=== PATIENT | female | born 1945 | race Caucasian/White ===

== ENCOUNTER 2020-10-05 10:59 | Inpatient (IN) | payer MEDICARE ==
[2020-10-05] MEDS ORDERED: Iopamidol-370 76% 500 ML 1 ML ONE (11:11)
[2020-10-05 11:32] LABS: #Eosinphils 0.4 thou/uL (0.0-0.7); #Lymphocytes 1.1 thou/uL (1.20-3.40); #Monocytes 0.7 thou/uL (0.11-0.59); #Neutrophils 4.4 thou/uL (1.40-6.50); %Basophils 0.1 % (0.0-1.0); %Eosinophils 6.1 % (0.0-10.0); %Lymphocytes 16.8 % (21.0-51.0); Hemoglobin 8.7 g/dL (12.0-16.0); Mean Corpuscular HGB CONC 32.2 g/dL (32.0-36.0); Mean Corpuscular Volume 99.1 fL (78.0-98.0); Mean Platelet Volume 7.2 fL (7.4-10.4); Platelet Count 154 thou/uL (130-400); Red Blood Cell (RBC) Count 2.71 mill/uL (4.20-5.40); White Blood Cell (WBC) Count 6.6 thou/uL (4.8-10.8)
[2020-10-05] MEDS ORDERED: Furosemide 40 MG/4 ML VIAL ONE (11:41)
[2020-10-05 12:03] LABS: ALT (SGPT) 14 U/L (8-55); AST (SGOT) 24 U/L (5-34); Albumin 2.4 g/dL (3.4-4.8); Alkaline Phosphatase 160 U/L (40-110); Anion Gap 11 mmol/L (10-20); BUN (Urea Nitrogen) 20 mg/dL (9.8-20.1); Bilirubin, Total 0.4 mg/dL (0.2-1.2); Calc. Creatinine Clearance 0 mL/min (70-130); Calcium 7.9 mg/dL (7.8-10.44); Carbon Dioxide 23 mmol/L (23-31); Chloride 106 mmol/L (98-107); Globulin 3.4 g/dL (2.4-3.5); Glucose 220 mg/dL (83-110); Potassium 3.9 mmol/L (3.5-5.1); Protein, Total 5.8 g/dL (5.8-8.1); Sodium 136 mmol/L (136-145)
[2020-10-05 13:02] LABS: SARS-CoV-2 NAA Rapid Test Not Detected (NotDetected)
[2020-10-05] MEDS ORDERED: Pantoprazole 40 MG VIAL ONE (13:16)
[2020-10-05 15:15] LABS: Troponin I Less than 0.010 ng/mL (< 0.028)
[2020-10-05] MEDS ORDERED: Ondansetron ODT 4 MG TAB SL PRN (16:00)
[2020-10-05] MEDS ORDERED: Ondansetron PF 4 MG/2 ML Vial IVP PRN (16:00)
[2020-10-05 17:16] LABS: INR-International Normal Ratio 1.1; PTT 30.8 sec (22.9-36.1); Prothrombin Time 14.7 sec (12.0-14.7)
[2020-10-05 17:49] LABS: HBCM Index 0.08 S/CO (0-0.79); HBSAg Index 0.29 S/CO (0-0.99); Hep A IgM AB Non-Reactive (NonReactive); Hep A IgM S/CO 0.25 S/CO (0-0.79); Hep B Surf Ag Non-Reactive S/CO (NonReactive); Hep C IgG Ab Non-Reactive (NonReactive); Hep C Index 0.22 S/CO (0-0.79); Hepatitis B Core IgM Abs Non-Reactive (NonReactive)
[2020-10-05 17:50] LABS: Troponin I Less than 0.010 ng/mL (< 0.028)
[2020-10-05] MEDS: Clindamycin/D5W 900 MG in Premix Bag 1 BAG IVPB SCH (18:13)
[2020-10-06] MEDS: Clindamycin/D5W 900 MG in Premix Bag 1 BAG IVPB SCH ×3 (03:00→17:09)
[2020-10-06 05:55] LABS: #Eosinphils 0.5 thou/uL (0.0-0.7); #Lymphocytes 1.3 thou/uL (1.20-3.40); #Monocytes 0.5 thou/uL (0.11-0.59); #Neutrophils 3.4 thou/uL (1.40-6.50); %Basophils 0.4 % (0.0-1.0); %Eosinophils 8.4 % (0.0-10.0); %Lymphocytes 23.4 % (21.0-51.0); %Monocytes 8.4 % (0.0-10.0); %Neutrophils 59.5 % (42.0-75.0); Hemoglobin 8.4 g/dL (12.0-16.0); Mean Corpuscular HGB CONC 31.8 g/dL (32.0-36.0); Mean Corpuscular Hemoglobin 31.6 pg (27.0-31.0); Mean Corpuscular Volume 99.4 fL (78.0-98.0); Mean Platelet Volume 6.8 fL (7.4-10.4); Platelet Count 137 thou/uL (130-400); Red Blood Cell (RBC) Count 2.64 mill/uL (4.20-5.40); White Blood Cell (WBC) Count 5.7 thou/uL (4.8-10.8)
[2020-10-06] MEDS: Bumetanide 1 MG/4 ML VIAL IVP SCH ×2 (06:03→14:54)
[2020-10-06 06:18] LABS: Anion Gap 9 mmol/L (10-20); BUN (Urea Nitrogen) 19 mg/dL (9.8-20.1); Calc. Creatinine Clearance 56 mL/min (70-130); Calcium 8.2 mg/dL (7.8-10.44); Carbon Dioxide 24 mmol/L (23-31); Chloride 105 mmol/L (98-107); Glucose 162 mg/dL (83-110); Iron 19 ug/dL (50-170); Iron Binding Capacity, Total 228 mcg/dL (265-497); Potassium 3.3 mmol/L (3.5-5.1); Sodium 135 mmol/L (136-145)
[2020-10-06] MEDS ORDERED: Lidocaine 1% PF 5 ML VIAL ONE (08:37)
[2020-10-06] MEDS ORDERED: Sodium Bicarbonate 2.5 MEQ/5 ML VIAL ONE (08:37)
[2020-10-06] MEDS: Saccharomyces boulardii 250 MG CAP PO SCH (10:10)
[2020-10-06] MEDS: Lantus 1000 UNITS/10 ML VIAL SC SCH (10:11)
[2020-10-06] MEDS: Metoprolol Tartrate 25 MG TAB PO SCH (10:11)
[2020-10-06 10:47] LABS: RBC Count-Automated (BF) 52 /cu.mm; WBC/Nucleated-Auto (BF) 31 uL
[2020-10-06 11:12] LABS: Body Fluid Source Paracentesis Fluid; Tube # EDTA
[2020-10-06 11:13] LABS: BF Color Yellow; Clarity Hazy (Clear)
[2020-10-06 11:15] LABS: BF Segmented Neutrophils 9 %; Cell Count Non Hematic 80 %; Lymphocytes 11 %
[2020-10-06 13:03] VITALS: BMI 40.6
[2020-10-06] MEDS ORDERED: Zolpidem Tartrate 5 MG TAB PO SCH ×2 (21:00→21:30)
[2020-10-07] MEDS: Clindamycin/D5W 900 MG in Premix Bag 1 BAG IVPB SCH ×3 (01:54→17:16)
[2020-10-07 06:16] LABS: #Eosinphils 0.4 thou/uL (0.0-0.7); #Lymphocytes 1.4 thou/uL (1.20-3.40); #Monocytes 0.6 thou/uL (0.11-0.59); #Neutrophils 3.2 thou/uL (1.40-6.50); %Basophils 0.5 % (0.0-1.0); %Eosinophils 7.1 % (0.0-10.0); %Lymphocytes 25.2 % (21.0-51.0); %Monocytes 9.9 % (0.0-10.0); %Neutrophils 57.3 % (42.0-75.0); Hemoglobin 8.4 g/dL (12.0-16.0); Mean Corpuscular HGB CONC 32.4 g/dL (32.0-36.0); Mean Corpuscular Hemoglobin 31.9 pg (27.0-31.0); Mean Corpuscular Volume 98.7 fL (78.0-98.0); Mean Platelet Volume 7.3 fL (7.4-10.4); Platelet Count 124 thou/uL (130-400); RBC Distribution Width 13.9 % (11.5-14.5); Red Blood Cell (RBC) Count 2.62 mill/uL (4.20-5.40); White Blood Cell (WBC) Count 5.5 thou/uL (4.8-10.8)
[2020-10-07 06:41] LABS: Anion Gap 11 mmol/L (10-20); BUN (Urea Nitrogen) 19 mg/dL (9.8-20.1); Calc. Creatinine Clearance 60 mL/min (70-130); Calcium 7.6 mg/dL (7.8-10.44); Carbon Dioxide 22 mmol/L (23-31); Chloride 105 mmol/L (98-107); Glucose 112 mg/dL (83-110); Potassium 3.7 mmol/L (3.5-5.1); Sodium 134 mmol/L (136-145)
[2020-10-07] MEDS ORDERED: Spironolactone 25 MG TAB PO SCH (08:00)
[2020-10-07] MEDS: Metoprolol Tartrate 25 MG TAB PO SCH (08:49)
[2020-10-07] MEDS: Furosemide 20 MG/2 ML VIAL SLOW IVP SCH (08:50)
[2020-10-07] MEDS: Saccharomyces boulardii 250 MG CAP PO SCH (08:50)
[2020-10-07] MEDS: Lantus 1000 UNITS/10 ML VIAL SC SCH (08:50)
[2020-10-07] MEDS ORDERED: Dextrose 5% in Water 1,000 ML IV PRN (16:15)
[2020-10-07] MEDS ORDERED: Dextrose 50% Abboject 50 ML SYRINGE IVP PRN (16:15)
[2020-10-07] MEDS: Insulin Regular 300 UNITS/3 ML VIAL SC PRN (17:16)
[2020-10-08] MEDS ORDERED: Zolpidem Tartrate 5 MG TAB PO SCH (00:15)
[2020-10-08] MEDS: Clindamycin/D5W 900 MG in Premix Bag 1 BAG IVPB SCH ×3 (01:41→17:50)
[2020-10-08 07:00] LABS: #Eosinphils 0.4 thou/uL (0.0-0.7); #Lymphocytes 1.4 thou/uL (1.20-3.40); #Monocytes 0.6 thou/uL (0.11-0.59); #Neutrophils 3.7 thou/uL (1.40-6.50); %Basophils 0.4 % (0.0-1.0); %Eosinophils 7.1 % (0.0-10.0); %Lymphocytes 22.4 % (21.0-51.0); %Monocytes 9.6 % (0.0-10.0); %Neutrophils 60.5 % (42.0-75.0); Hemoglobin 8.6 g/dL (12.0-16.0); Mean Corpuscular HGB CONC 33.3 g/dL (32.0-36.0); Mean Corpuscular Hemoglobin 32.9 pg (27.0-31.0); Mean Corpuscular Volume 98.8 fL (78.0-98.0); Mean Platelet Volume 7.7 fL (7.4-10.4); Platelet Count 133 thou/uL (130-400); RBC Distribution Width 13.8 % (11.5-14.5); Red Blood Cell (RBC) Count 2.63 mill/uL (4.20-5.40); White Blood Cell (WBC) Count 6.1 thou/uL (4.8-10.8)
[2020-10-08 07:17] LABS: Anion Gap 11 mmol/L (10-20); BUN (Urea Nitrogen) 19 mg/dL (9.8-20.1); Calc. Creatinine Clearance 55 mL/min (70-130); Calcium 7.6 mg/dL (7.8-10.44); Carbon Dioxide 27 mmol/L (23-31); Chloride 104 mmol/L (98-107); Glucose 120 mg/dL (83-110); Potassium 3.9 mmol/L (3.5-5.1); Sodium 138 mmol/L (136-145)
[2020-10-08] MEDS: Saccharomyces boulardii 250 MG CAP PO SCH (08:28)
[2020-10-08] MEDS: Spironolactone 100 MG TAB PO SCH (08:28)
[2020-10-08] MEDS: Metoprolol Tartrate 25 MG TAB PO SCH (08:29)
[2020-10-08] MEDS: Furosemide 20 MG/2 ML VIAL SLOW IVP SCH (08:29)
[2020-10-08] MEDS: Lantus 1000 UNITS/10 ML VIAL SC SCH (08:29)
[2020-10-08] MEDS: Insulin Regular 300 UNITS/3 ML VIAL SC PRN (18:01)
[2020-10-09] MEDS: Clindamycin/D5W 900 MG in Premix Bag 1 BAG IVPB SCH ×2 (01:13→08:57)
[2020-10-09] MEDS ORDERED: HYDROcodone/Acetaminophen 5/325 mg Tablet PO SCH (03:15)
[2020-10-09] MEDS: Saccharomyces boulardii 250 MG CAP PO SCH (07:49)
[2020-10-09] MEDS: Furosemide 20 MG/2 ML VIAL SLOW IVP SCH (07:49)
[2020-10-09] MEDS: Metoprolol Tartrate 25 MG TAB PO SCH (07:50)
[2020-10-09] MEDS: Spironolactone 100 MG TAB PO SCH (07:50)
[2020-10-09] MEDS: Lantus 1000 UNITS/10 ML VIAL SC SCH (07:50)
[2020-10-09] MEDS: Insulin Regular 300 UNITS/3 ML VIAL SC PRN (11:40)
[2020-10-09] MEDS: Clindamycin 150 MG CAP PO SCH ×2 (15:26→23:12)
[2020-10-10] MEDS: Insulin Regular 300 UNITS/3 ML VIAL SC PRN ×2 (05:26→11:57)
[2020-10-10] MEDS: Clindamycin 150 MG CAP PO SCH ×2 (05:28→15:08)
[2020-10-10 07:56] VITALS: BP 105/66; TEMP 97.8
[2020-10-10] MEDS: Spironolactone 100 MG TAB PO SCH (08:29)
[2020-10-10] MEDS: Metoprolol Tartrate 25 MG TAB PO SCH (08:29)
[2020-10-10] MEDS: Saccharomyces boulardii 250 MG CAP PO SCH (08:29)
[2020-10-10] MEDS: Lantus 1000 UNITS/10 ML VIAL SC SCH (08:30)
[2020-10-10] MEDS ORDERED: Furosemide 40 MG TAB PO SCH (09:00)
[2020-10-10 11:38] LABS: ANA Symphony (Qualitative) Negative (Negative); ANA Symphony (Quantitative) 0.3 Ratio (< 0.7 Negative)
[2020-10-10 12:36] LABS: EliA Vaculitis New Method **** NEW METHOD ****; Mitochondrial Ab 2.3 U/mL (<4 Negative)
== END 2020-10-10 16:15 | DRG 433 ==
LOC: ERS 10:59 → T4-B 14:30
PROVIDERS: ADMIT Family Medicine; ATTEND Internal Medicine
PROC: 0W9G3ZZ Drainage of Peritoneal Cavity, Percutaneous Approach (ICD-10-PCS; principal; 2020-10-06)
DX: K74.60 Unspecified cirrhosis of liver (principal); I13.0 Hypertensive heart and chronic kidney disease with heart failure and stage 1 through stage 4 chronic kidney disease, or unspecified chronic kidney disease; R18.8 Other ascites; Z20.822 Contact with and (suspected) exposure to COVID-19; K76.6 Portal hypertension; L03.119 Cellulitis of unspecified part of limb; R65.10 Systemic inflammatory response syndrome (SIRS) of non-infectious origin without acute organ dysfunction; I50.9 Heart failure, unspecified; E11.22 Type 2 diabetes mellitus with diabetic chronic kidney disease; E11.65 Type 2 diabetes mellitus with hyperglycemia; I25.10 Atherosclerotic heart disease of native coronary artery without angina pectoris; K59.09 Other constipation; F41.9 Anxiety disorder, unspecified; N18.9 Chronic kidney disease, unspecified; R41.0 Disorientation, unspecified; Z95.1 Presence of aortocoronary bypass graft; Z88.0 Allergy status to penicillin; Z88.2 Allergy status to sulfonamides; Z79.82 Long term (current) use of aspirin; Z79.4 Long term (current) use of insulin; Z79.899 Other long term (current) drug therapy; I25.2 Old myocardial infarction; Z95.5 Presence of coronary angioplasty implant and graft; D63.1 Anemia in chronic kidney disease
CPT/HCPCS: 0240U; 36415; 36416; 49083; 71045; 71275; 80048; 80053; 80074; 82042; 82103; 82274; 82390; 82728; 83516; 83540; 83550; 83615; 83880; 84157; 84484; 85025; 85046; 85060; 85610; 85730; 86038; 86225; 87070; 87205; 89051; 93005; 93306; 94640; 96374; 96375; C9113; J1815; J1940; J3490; J7620; Q9967

== ENCOUNTER 2020-10-12 11:34 | Inpatient (IN) | payer MEDICARE ==
[2020-10-12 12:32] LABS: Hemoglobin 8.5 g/dL (12.0-16.0); Mean Corpuscular HGB CONC 33.6 g/dL (32.0-36.0); Mean Corpuscular Hemoglobin 32.2 pg (27.0-31.0); Mean Corpuscular Volume 95.9 fL (78.0-98.0); RBC Distribution Width 13.7 % (11.5-14.5); Red Blood Cell (RBC) Count 2.64 mill/uL (4.20-5.40); White Blood Cell (WBC) Count 5.9 thou/uL (4.8-10.8)
[2020-10-12 12:36] LABS: INR-International Normal Ratio 1.1; Prothrombin Time 14.2 sec (12.0-14.7)
[2020-10-12 12:37] LABS: PTT 24.3 sec (22.9-36.1)
[2020-10-12 12:41] LABS: ALT (SGPT) 12 U/L (8-55); AST (SGOT) 18 U/L (5-34); Albumin 2.1 g/dL (3.4-4.8); Alkaline Phosphatase 137 U/L (40-110); Anion Gap 10 mmol/L (10-20); BUN (Urea Nitrogen) 22 mg/dL (9.8-20.1); Bilirubin, Total 0.3 mg/dL (0.2-1.2); Calc. Creatinine Clearance 0 mL/min (70-130); Calcium 8.3 mg/dL (7.8-10.44); Carbon Dioxide 26 mmol/L (23-31); Chloride 106 mmol/L (98-107); Globulin 3.8 g/dL (2.4-3.5); Glucose 218 mg/dL (83-110); Potassium 3.8 mmol/L (3.5-5.1); Protein, Total 5.9 g/dL (5.8-8.1); Sodium 138 mmol/L (136-145)
[2020-10-12 12:52] LABS: Band 14 % (5-11); Lymphocytes 30 % (21-51); MDiff Complete? YES; Mean Platelet Volume 8.9 fL (7.4-10.4); Monocytes 4 % (0-10); Neutrophil 52 % (42-75); Platelet Count 31 thou/uL (130-400)
[2020-10-12] MEDS ORDERED: Cefepime 2 GM VIAL ONE (14:08)
[2020-10-12] MEDS ORDERED: VANCOMYCIN 2 GRAM/400 ML BAG 2 GM in Premix Bag 1 BAG IVPB SCH (14:45)
[2020-10-12 17:15] LABS: Troponin I Less than 0.010 ng/mL (< 0.028)
[2020-10-12 18:50] LABS: Troponin I Less than 0.010 ng/mL (< 0.028)
[2020-10-12] MEDS ORDERED: Ondansetron PF 4 MG/2 ML Vial IVP PRN (19:00)
[2020-10-12] MEDS ORDERED: Ondansetron ODT 4 MG TAB SL PRN (19:00)
[2020-10-12] MEDS ORDERED: Dextrose 5% in Water 1,000 ML IV PRN (20:37)
[2020-10-12] MEDS ORDERED: Acetaminophen 325 MG TAB PO PRN (20:37)
[2020-10-12] MEDS ORDERED: Dextrose 50% Abboject 50 ML SYRINGE SLOW IVP PRN (20:37)
[2020-10-12] MEDS: Sodium Chloride 0.9% 1,000 ML IV SCH (21:20)
[2020-10-12] MEDS ORDERED: diphenhydrAMINE 50 MG/ML VIAL IVP PRN (22:48)
[2020-10-12 23:15] VITALS: BMI 41.7
[2020-10-13 03:12] LABS: SARS-CoV-2 NAA Rapid Test Not Detected (NotDetected)
[2020-10-13 04:58] LABS: #Eosinphils 0.3 thou/uL (0.0-0.7); #Lymphocytes 1.5 thou/uL (1.20-3.40); #Monocytes 0.6 thou/uL (0.11-0.59); %Basophils 0.6 % (0.0-1.0); %Eosinophils 4.2 % (0.0-10.0); %Lymphocytes 20.1 % (21.0-51.0); %Monocytes 8.3 % (0.0-10.0); %Neutrophils 66.8 % (42.0-75.0); Hemoglobin 9.6 g/dL (12.0-16.0); Mean Corpuscular HGB CONC 33.1 g/dL (32.0-36.0); Mean Corpuscular Hemoglobin 31.9 pg (27.0-31.0); Mean Corpuscular Volume 96.3 fL (78.0-98.0); Mean Platelet Volume 7.9 fL (7.4-10.4); Platelet Count 124 thou/uL (130-400); RBC Distribution Width 13.8 % (11.5-14.5); Red Blood Cell (RBC) Count 2.99 mill/uL (4.20-5.40); White Blood Cell (WBC) Count 7.5 thou/uL (4.8-10.8)
[2020-10-13 05:10] LABS: Anion Gap 11 mmol/L (10-20); BUN (Urea Nitrogen) 23 mg/dL (9.8-20.1); Calc. Creatinine Clearance 57 mL/min (70-130); Calcium 8.2 mg/dL (7.8-10.44); Carbon Dioxide 25 mmol/L (23-31); Chloride 106 mmol/L (98-107); Glucose 140 mg/dL (83-110); Potassium 3.6 mmol/L (3.5-5.1); Sodium 138 mmol/L (136-145)
[2020-10-13] MEDS: Atorvastatin Calcium 40 MG TAB PO SCH (08:44)
[2020-10-13] MEDS: Furosemide 40 MG TAB PO SCH (08:44)
[2020-10-13] MEDS: Aspirin 81 mg Enteric Coated Tablet PO SCH (08:44)
[2020-10-13] MEDS: Spironolactone 100 MG TAB PO SCH (08:44)
[2020-10-13] MEDS: Sodium Chloride 0.9% 1,000 ML IV SCH (12:43)
[2020-10-13] MEDS ORDERED: Cefepime 1 GM in Sodium Chloride 0.9% 100 ML IVPB SCH (14:00)
[2020-10-13] MEDS ORDERED: Furosemide 20 MG/2 ML VIAL SLOW IVP SCH (14:30)
[2020-10-13] MEDS ORDERED: Azithromycin 500 MG in Sodium Chloride 0.9% 250 ML 250 ML IVPB SCH (15:00)
[2020-10-13] MEDS: HumaLOG 300 UNITS/3 ML VIAL SC PRN (17:24)
[2020-10-13] MEDS: cefTRIAXone\\ROCEPHIN 1 GM in Sodium Chloride 0.9% 100 ML IVPB SCH (17:24)
[2020-10-13] MEDS ORDERED: Vancomycin 1.5 GRAM/300 ML BAG 1.5 GM in Premix Bag 1 BAG IVPB SCH (18:00)
[2020-10-13 18:41] LABS: Bilirubin Negative (Negative); Blood, Urine Trace (Negative); Clarity Turbid (Clear); Glucose, Urine (Dipstick) Normal (Negative); Ketone, Urine Negative (Negative); Leukocyte 500 Leu/uL (Negative); Nitrite Negative (Negative); Protein, Urine (Dipstick) Negative (Neg-Trace); Specific Gravity, Urine 1.009 (1.002-1.036); Squamous Epithelial 0-3 HPF (0-3); Urobilinogen Normal mg/dL (Less than 2); WBC/HPF Greater than 50 HPF (0-3)
[2020-10-13 18:49] LABS: Bacteria/HPF 1+ HPF (None Seen)
[2020-10-13 18:50] LABS: Urine Culture Reflex Yes Yes
[2020-10-14 04:51] LABS: #Eosinphils 0.3 thou/uL (0.0-0.7); #Lymphocytes 1.4 thou/uL (1.20-3.40); #Monocytes 0.6 thou/uL (0.11-0.59); #Neutrophils 3.4 thou/uL (1.40-6.50); %Basophils 0.2 % (0.0-1.0); %Eosinophils 4.7 % (0.0-10.0); %Lymphocytes 24.8 % (21.0-51.0); %Monocytes 10.7 % (0.0-10.0); %Neutrophils 59.7 % (42.0-75.0); Hemoglobin 7.9 g/dL (12.0-16.0); Mean Corpuscular HGB CONC 32.3 g/dL (32.0-36.0); Mean Corpuscular Hemoglobin 31.2 pg (27.0-31.0); Mean Corpuscular Volume 96.5 fL (78.0-98.0); Mean Platelet Volume 7.7 fL (7.4-10.4); Platelet Count 113 thou/uL (130-400); RBC Distribution Width 13.7 % (11.5-14.5); Red Blood Cell (RBC) Count 2.55 mill/uL (4.20-5.40); White Blood Cell (WBC) Count 5.7 thou/uL (4.8-10.8)
[2020-10-14 05:52] LABS: ALT (SGPT) 12 U/L (8-55); AST (SGOT) 14 U/L (5-34); Albumin 2.1 g/dL (3.4-4.8); Alkaline Phosphatase 126 U/L (40-110); Anion Gap 12 mmol/L (10-20); BUN (Urea Nitrogen) 22 mg/dL (9.8-20.1); Bilirubin, Total 0.4 mg/dL (0.2-1.2); Calc. Creatinine Clearance 60 mL/min (70-130); Calcium 7.6 mg/dL (7.8-10.44); Carbon Dioxide 21 mmol/L (23-31); Chloride 107 mmol/L (98-107); Globulin 3.5 g/dL (2.4-3.5); Glucose 175 mg/dL (83-110); Magnesium 1.7 mg/dL (1.6-2.6); Phosphorus 3.2 mg/dL (2.3-4.7); Potassium 3.8 mmol/L (3.5-5.1); Protein, Total 5.6 g/dL (5.8-8.1); Sodium 136 mmol/L (136-145)
[2020-10-14] MEDS: HumaLOG 300 UNITS/3 ML VIAL SC PRN ×4 (06:05→21:20)
[2020-10-14] MEDS ORDERED: Magnesium 2 GM/50 ML 2 GM in Premix Bag 1 BAG IVPB SCH (07:30)
[2020-10-14] MEDS: Atorvastatin Calcium 40 MG TAB PO SCH (08:47)
[2020-10-14] MEDS: Aspirin 81 mg Enteric Coated Tablet PO SCH (08:47)
[2020-10-14] MEDS: Furosemide 40 MG TAB PO SCH ×2 (08:47→16:02)
[2020-10-14] MEDS: Spironolactone 100 MG TAB PO SCH (08:47)
[2020-10-14] MEDS: cefTRIAXone\\ROCEPHIN 1 GM in Sodium Chloride 0.9% 100 ML IVPB SCH (15:58)
[2020-10-14] MEDS: Metoprolol Tartrate 25 MG TAB PO SCH (20:38)
[2020-10-15 05:13] LABS: #Eosinphils 0.2 thou/uL (0.0-0.7); #Lymphocytes 1.5 thou/uL (1.20-3.40); #Monocytes 0.8 thou/uL (0.11-0.59); #Neutrophils 4.8 thou/uL (1.40-6.50); %Basophils 0.5 % (0.0-1.0); %Eosinophils 3.4 % (0.0-10.0); %Monocytes 10.7 % (0.0-10.0); %Neutrophils 65.5 % (42.0-75.0); Mean Corpuscular HGB CONC 32.6 g/dL (32.0-36.0); Mean Corpuscular Hemoglobin 31.5 pg (27.0-31.0); Mean Corpuscular Volume 96.4 fL (78.0-98.0); Platelet Count 127 thou/uL (130-400); RBC Distribution Width 14.1 % (11.5-14.5); Red Blood Cell (RBC) Count 2.87 mill/uL (4.20-5.40); White Blood Cell (WBC) Count 7.3 thou/uL (4.8-10.8)
[2020-10-15 05:43] LABS: Anion Gap 10 mmol/L (10-20); BUN (Urea Nitrogen) 21 mg/dL (9.8-20.1); Calc. Creatinine Clearance 61 mL/min (70-130); Calcium 8.2 mg/dL (7.8-10.44); Carbon Dioxide 24 mmol/L (23-31); Chloride 106 mmol/L (98-107); Glucose 188 mg/dL (83-110); Magnesium 1.9 mg/dL (1.6-2.6); Phosphorus 3.1 mg/dL (2.3-4.7); Potassium 3.9 mmol/L (3.5-5.1); Sodium 136 mmol/L (136-145)
[2020-10-15] MEDS: HumaLOG 300 UNITS/3 ML VIAL SC PRN ×3 (05:44→16:33)
[2020-10-15] MEDS: Aspirin 81 mg Enteric Coated Tablet PO SCH (08:57)
[2020-10-15] MEDS: Spironolactone 100 MG TAB PO SCH (08:57)
[2020-10-15] MEDS: Atorvastatin Calcium 40 MG TAB PO SCH (08:58)
[2020-10-15] MEDS: Pantoprazole 40 MG GRANULES PACKET PO SCH (08:58)
[2020-10-15] MEDS: Metoprolol Tartrate 25 MG TAB PO SCH ×2 (08:58→20:58)
[2020-10-15] MEDS: Furosemide 40 MG TAB PO SCH (08:58)
[2020-10-15] MEDS ORDERED: Magnesium Sulfate 2 GM in Sodium Chloride 0.9% 100 ML IVPB SCH (11:00)
[2020-10-15] MEDS ORDERED: Magnesium 2 GM/50 ML 2 GM in Premix Bag 1 BAG IVPB SCH (11:15)
[2020-10-15] MEDS: Furosemide 40 MG/4 ML VIAL SLOW IVP SCH ×2 (11:16→16:16)
[2020-10-15] MEDS: cefTRIAXone\\ROCEPHIN 1 GM in Sodium Chloride 0.9% 100 ML IVPB SCH (16:16)
[2020-10-15] MEDS: Potassium Chloride 20 MEQ TAB PO SCH (16:16)
[2020-10-16 04:43] LABS: Anion Gap 10 mmol/L (10-20); BUN (Urea Nitrogen) 22 mg/dL (9.8-20.1); Calc. Creatinine Clearance 58 mL/min (70-130); Calcium 8.1 mg/dL (7.8-10.44); Carbon Dioxide 25 mmol/L (23-31); Chloride 105 mmol/L (98-107); Glucose 210 mg/dL (83-110); Potassium 4.3 mmol/L (3.5-5.1); Sodium 136 mmol/L (136-145)
[2020-10-16 05:10] LABS: #Eosinphils 0.3 thou/uL (0.0-0.7); #Lymphocytes 1.4 thou/uL (1.20-3.40); #Monocytes 0.7 thou/uL (0.11-0.59); #Neutrophils 4.1 thou/uL (1.40-6.50); %Basophils 0.3 % (0.0-1.0); %Eosinophils 4.1 % (0.0-10.0); %Lymphocytes 21.6 % (21.0-51.0); %Monocytes 10.8 % (0.0-10.0); %Neutrophils 63.2 % (42.0-75.0); Hemoglobin 7.9 g/dL (12.0-16.0); Mean Corpuscular HGB CONC 32.1 g/dL (32.0-36.0); Mean Corpuscular Hemoglobin 30.8 pg (27.0-31.0); Mean Platelet Volume 7.9 fL (7.4-10.4); Platelet Count 119 thou/uL (130-400); RBC Distribution Width 14.1 % (11.5-14.5); Red Blood Cell (RBC) Count 2.57 mill/uL (4.20-5.40); White Blood Cell (WBC) Count 6.5 thou/uL (4.8-10.8)
[2020-10-16] MEDS: HumaLOG 300 UNITS/3 ML VIAL SC PRN ×4 (06:44→20:55)
[2020-10-16] MEDS: Metoprolol Tartrate 25 MG TAB PO SCH ×2 (08:37→20:50)
[2020-10-16] MEDS: Pantoprazole 40 MG GRANULES PACKET PO SCH (08:37)
[2020-10-16] MEDS: Spironolactone 100 MG TAB PO SCH (08:37)
[2020-10-16] MEDS: Aspirin 81 mg Enteric Coated Tablet PO SCH (08:37)
[2020-10-16] MEDS: Atorvastatin Calcium 40 MG TAB PO SCH (08:38)
[2020-10-16] MEDS: Furosemide 40 MG/4 ML VIAL SLOW IVP SCH ×2 (11:10→17:10)
[2020-10-16] MEDS ORDERED: Lidocaine 1% PF 5 ML VIAL ONE (14:15)
[2020-10-16] MEDS ORDERED: Sodium Bicarbonate 2.5 MEQ/5 ML VIAL ONE (14:15)
[2020-10-16] MEDS: Potassium Chloride 20 MEQ TAB PO SCH (17:10)
[2020-10-16] MEDS: cefTRIAXone\\ROCEPHIN 1 GM in Sodium Chloride 0.9% 100 ML IVPB SCH (17:10)
[2020-10-16] MEDS: Albumin 25% 25 GM/100 ML BOT IVPB SCH (17:54)
[2020-10-16 19:15] LABS: RBC Count-Automated (BF) 0 /cu.mm; WBC/Nucleated-Auto (BF) 60 uL
[2020-10-16 19:16] LABS: BF Color Colorless; Body Fluid Source Ascites Body Fluid; Clarity Clear (Clear); Tube # EDTA
[2020-10-16 19:48] LABS: BF Segmented Neutrophils 15 %; Cell Count Non Hematic 79 %; Lymphocytes 6 %
[2020-10-17] MEDS: Albumin 25% 25 GM/100 ML BOT IVPB SCH ×3 (02:26→19:23)
[2020-10-17] MEDS: HYDROcodone/Acetaminophen 5/325 mg Tablet PO PRN ×2 (02:32→11:56)
[2020-10-17 05:00] LABS: #Eosinphils 0.2 thou/uL (0.0-0.7); #Lymphocytes 1.3 thou/uL (1.20-3.40); #Monocytes 0.5 thou/uL (0.11-0.59); #Neutrophils 3.2 thou/uL (1.40-6.50); %Basophils 0.2 % (0.0-1.0); %Eosinophils 4.3 % (0.0-10.0); %Lymphocytes 24.3 % (21.0-51.0); %Neutrophils 62.1 % (42.0-75.0); Hemoglobin 7.7 g/dL (12.0-16.0); Mean Corpuscular HGB CONC 32.6 g/dL (32.0-36.0); Mean Corpuscular Hemoglobin 31.7 pg (27.0-31.0); Mean Corpuscular Volume 97.4 fL (78.0-98.0); Mean Platelet Volume 8.1 fL (7.4-10.4); Platelet Count 91 thou/uL (130-400); RBC Distribution Width 13.9 % (11.5-14.5); Red Blood Cell (RBC) Count 2.42 mill/uL (4.20-5.40); White Blood Cell (WBC) Count 5.1 thou/uL (4.8-10.8)
[2020-10-17 05:22] LABS: ALT (SGPT) 14 U/L (8-55); AST (SGOT) 16 U/L (5-34); Albumin 2.7 g/dL (3.4-4.8); Alkaline Phosphatase 123 U/L (40-110); Anion Gap 12 mmol/L (10-20); BUN (Urea Nitrogen) 20 mg/dL (9.8-20.1); Bilirubin, Total 0.3 mg/dL (0.2-1.2); Calc. Creatinine Clearance 51 mL/min (70-130); Carbon Dioxide 25 mmol/L (23-31); Chloride 103 mmol/L (98-107); Globulin 3.4 g/dL (2.4-3.5); Glucose 243 mg/dL (83-110); Magnesium 1.9 mg/dL (1.6-2.6); Potassium 4.2 mmol/L (3.5-5.1); Protein, Total 6.1 g/dL (5.8-8.1); Sodium 136 mmol/L (136-145)
[2020-10-17] MEDS: HumaLOG 300 UNITS/3 ML VIAL SC PRN ×4 (05:41→20:32)
[2020-10-17] MEDS ORDERED: Magnesium 2 GM/50 ML 2 GM in Premix Bag 1 BAG IVPB SCH (07:30)
[2020-10-17] MEDS: Spironolactone 100 MG TAB PO SCH (08:37)
[2020-10-17] MEDS: Pantoprazole 40 MG GRANULES PACKET PO SCH (08:37)
[2020-10-17] MEDS: Aspirin 81 mg Enteric Coated Tablet PO SCH (08:37)
[2020-10-17] MEDS: Metoprolol Tartrate 25 MG TAB PO SCH ×2 (08:37→20:29)
[2020-10-17] MEDS: Atorvastatin Calcium 40 MG TAB PO SCH (08:37)
[2020-10-17] MEDS: Furosemide 40 MG TAB PO SCH ×2 (08:37→14:57)
[2020-10-17] MEDS: cefTRIAXone\\ROCEPHIN 1 GM in Sodium Chloride 0.9% 100 ML IVPB SCH (17:35)
[2020-10-17] MEDS ORDERED: Spironolactone 100 MG TAB PO SCH (20:00)
[2020-10-18] MEDS: HYDROcodone/Acetaminophen 5/325 mg Tablet PO PRN ×2 (02:41→23:37)
[2020-10-18 05:40] LABS: #Eosinphils 0.2 thou/uL (0.0-0.7); #Lymphocytes 1.1 thou/uL (1.20-3.40); #Monocytes 0.6 thou/uL (0.11-0.59); #Neutrophils 3.5 thou/uL (1.40-6.50); %Basophils 0.3 % (0.0-1.0); %Lymphocytes 20.1 % (21.0-51.0); %Monocytes 11.2 % (0.0-10.0); %Neutrophils 64.5 % (42.0-75.0); Hemoglobin 7.4 g/dL (12.0-16.0); Mean Corpuscular HGB CONC 32.6 g/dL (32.0-36.0); Mean Corpuscular Hemoglobin 31.6 pg (27.0-31.0); Mean Platelet Volume 8.3 fL (7.4-10.4); Platelet Count 87 thou/uL (130-400); RBC Distribution Width 13.7 % (11.5-14.5); Red Blood Cell (RBC) Count 2.34 mill/uL (4.20-5.40); White Blood Cell (WBC) Count 5.4 thou/uL (4.8-10.8)
[2020-10-18 05:58] LABS: ALT (SGPT) 13 U/L (8-55); AST (SGOT) 17 U/L (5-34); Alkaline Phosphatase 119 U/L (40-110); Anion Gap 12 mmol/L (10-20); BUN (Urea Nitrogen) 17 mg/dL (9.8-20.1); Bilirubin, Total 0.3 mg/dL (0.2-1.2); Calc. Creatinine Clearance 54 mL/min (70-130); Calcium 8.2 mg/dL (7.8-10.44); Carbon Dioxide 26 mmol/L (23-31); Chloride 100 mmol/L (98-107); Globulin 3.1 g/dL (2.4-3.5); Glucose 175 mg/dL (83-110); Potassium 4.2 mmol/L (3.5-5.1); Protein, Total 6.1 g/dL (5.8-8.1); Sodium 134 mmol/L (136-145)
[2020-10-18] MEDS: Metoprolol Tartrate 25 MG TAB PO SCH ×2 (08:50→20:06)
[2020-10-18] MEDS: Aspirin 81 mg Enteric Coated Tablet PO SCH (08:50)
[2020-10-18] MEDS: Furosemide 40 MG TAB PO SCH ×2 (08:50→14:48)
[2020-10-18] MEDS: Spironolactone 100 MG TAB PO SCH ×2 (08:50→17:31)
[2020-10-18] MEDS: Atorvastatin Calcium 40 MG TAB PO SCH (08:50)
[2020-10-18] MEDS: HumaLOG 300 UNITS/3 ML VIAL SC PRN ×3 (11:47→21:58)
[2020-10-18] MEDS: cefTRIAXone\\ROCEPHIN 1 GM in Sodium Chloride 0.9% 100 ML IVPB SCH (17:31)
[2020-10-18] MEDS ORDERED: Iron, Sodium Ferric Gluconate 250 MG in Sodium Chloride 0.9% 250 ML 250 ML IVPB SCH (20:00)
[2020-10-18] MEDS ORDERED: Melatonin 3 MG TAB PO PRN (23:28)
[2020-10-19 04:29] LABS: Hemoglobin 7.5 g/dL (12.0-16.0); Platelet Count 78 thou/uL (130-400)
[2020-10-19] MEDS: Spironolactone 100 MG TAB PO SCH (08:32)
[2020-10-19] MEDS: Aspirin 81 mg Enteric Coated Tablet PO SCH (08:32)
[2020-10-19] MEDS: Metoprolol Tartrate 25 MG TAB PO SCH (08:32)
[2020-10-19] MEDS: Atorvastatin Calcium 40 MG TAB PO SCH (08:33)
[2020-10-19] MEDS: Furosemide 40 MG TAB PO SCH (08:33)
[2020-10-19 11:44] VITALS: BP 109/50; TEMP 98.3
== END 2020-10-19 13:05 | DRG 312 ==
LOC: ERS 11:34 → ERHOLD 14:57 → 2NO 18:19
PROVIDERS: ADMIT Internal Medicine; ATTEND Internal Medicine
PROC: 0W9G3ZZ Drainage of Peritoneal Cavity, Percutaneous Approach (ICD-10-PCS; principal; 2020-10-16)
PROC: BW40ZZZ Ultrasonography of Abdomen (ICD-10-PCS; 2020-10-16)
DX: R55 Syncope and collapse (principal); G92 Toxic encephalopathy; R18.8 Other ascites; N39.0 Urinary tract infection, site not specified; I47.1 Supraventricular tachycardia; L03.115 Cellulitis of right lower limb; L03.116 Cellulitis of left lower limb; N17.9 Acute kidney failure, unspecified; Z68.41 Body mass index [BMI] 40.0-44.9, adult; K74.69 Other cirrhosis of liver; D69.6 Thrombocytopenia, unspecified; E11.22 Type 2 diabetes mellitus with diabetic chronic kidney disease; N18.30 Chronic kidney disease, stage 3 unspecified; I12.9 Hypertensive chronic kidney disease with stage 1 through stage 4 chronic kidney disease, or unspecified chronic kidney disease; I08.3 Combined rheumatic disorders of mitral, aortic and tricuspid valves; D63.1 Anemia in chronic kidney disease; I87.2 Venous insufficiency (chronic) (peripheral); B95.8 Unspecified staphylococcus as the cause of diseases classified elsewhere; I25.10 Atherosclerotic heart disease of native coronary artery without angina pectoris; R53.81 Other malaise; E87.6 Hypokalemia; K59.09 Other constipation; D50.0 Iron deficiency anemia secondary to blood loss (chronic); E66.01 Morbid (severe) obesity due to excess calories; Z79.82 Long term (current) use of aspirin; Z95.1 Presence of aortocoronary bypass graft; Z95.5 Presence of coronary angioplasty implant and graft; Z79.899 Other long term (current) drug therapy; Z79.4 Long term (current) use of insulin; Z88.0 Allergy status to penicillin; Z88.2 Allergy status to sulfonamides; I25.2 Old myocardial infarction; Z88.8 Allergy status to other drugs, medicaments and biological substances
CPT/HCPCS: 36415; 36416; 49083; 71045; 80048; 80053; 81001; 82140; 83605; 83735; 84100; 84484; 85014; 85018; 85025; 85049; 85060; 85610; 85730; 86850; 86900; 86901; 87040; 87086; 87149; 89051; 93005; 93970; 96365; 96367; J0692; J0696; J1200; J1815; J1940; J1956; J2916; J3370; J3475; J3490; J7050; J7620; P9047; U0002

== ENCOUNTER 2020-11-02 10:07 | Day surgery (SDC) | payer MEDICARE ==
[2020-11-01 15:06] VITALS: BMI 39.9
[2020-11-02] MEDS ORDERED: Lidocaine 1% PF 5 ML VIAL ONE (11:03)
[2020-11-02] MEDS ORDERED: Sodium Bicarbonate 2.5 MEQ/5 ML VIAL ONE (11:03)
[2020-11-02 12:45] VITALS: BP 109/59; TEMP 98.8
== END 2020-11-02 12:10 | disposition home or self-care (01) ==
LOC: ULT 10:07
PROVIDERS: ATTEND Physician Assistant Medical
PROC: 0W9G3ZZ Drainage of Peritoneal Cavity, Percutaneous Approach (ICD-10-PCS; principal; 2020-11-02)
DX: K74.60 Unspecified cirrhosis of liver (principal); R18.8 Other ascites; J44.9 Chronic obstructive pulmonary disease, unspecified; M19.90 Unspecified osteoarthritis, unspecified site; I12.9 Hypertensive chronic kidney disease with stage 1 through stage 4 chronic kidney disease, or unspecified chronic kidney disease; E11.22 Type 2 diabetes mellitus with diabetic chronic kidney disease; N18.9 Chronic kidney disease, unspecified; D63.1 Anemia in chronic kidney disease; I25.10 Atherosclerotic heart disease of native coronary artery without angina pectoris; I25.2 Old myocardial infarction; E78.00 Pure hypercholesterolemia, unspecified; G47.30 Sleep apnea, unspecified; Z87.891 Personal history of nicotine dependence; Z79.4 Long term (current) use of insulin; Z79.82 Long term (current) use of aspirin; Z79.899 Other long term (current) drug therapy; Z88.0 Allergy status to penicillin; Z88.2 Allergy status to sulfonamides; Z95.1 Presence of aortocoronary bypass graft; Z95.5 Presence of coronary angioplasty implant and graft
CPT/HCPCS: 49083

== ENCOUNTER 2020-11-04 10:54 | Inpatient (IN) | payer MEDICARE ==
[2020-11-04 11:30] LABS: #Eosinphils 0.1 thou/uL (0.0-0.7); #Lymphocytes 0.7 thou/uL (1.20-3.40); #Monocytes 0.3 thou/uL (0.11-0.59); #Neutrophils 3.7 thou/uL (1.40-6.50); %Basophils 0.3 % (0.0-1.0); %Lymphocytes 13.8 % (21.0-51.0); Hemoglobin 11.2 g/dL (12.0-16.0); Mean Corpuscular Hemoglobin 30.4 pg (27.0-31.0); Mean Platelet Volume 9.5 fL (7.4-10.4); Platelet Count 77 thou/uL (130-400); RBC Distribution Width 15.7 % (11.5-14.5); White Blood Cell (WBC) Count 4.7 thou/uL (4.8-10.8)
[2020-11-04 11:33] LABS: INR-International Normal Ratio 1.3; PTT 28.8 sec (22.9-36.1); Prothrombin Time 16.5 sec (12.0-14.7)
[2020-11-04 11:43] LABS: ALT (SGPT) 15 U/L (8-55); AST (SGOT) 17 U/L (5-34); Alkaline Phosphatase 104 U/L (40-110); Anion Gap 17 mmol/L (10-20); BUN (Urea Nitrogen) 32 mg/dL (9.8-20.1); Bilirubin, Total 0.4 mg/dL (0.2-1.2); Calc. Creatinine Clearance 0 mL/min (70-130); Calcium 7.1 mg/dL (7.8-10.44); Carbon Dioxide 20 mmol/L (23-31); Chloride 107 mmol/L (98-107); Globulin 3.1 g/dL (2.4-3.5); Glucose 146 mg/dL (83-110); Potassium 5.5 mmol/L (3.5-5.1); Protein, Total 5.1 g/dL (5.8-8.1); Sodium 138 mmol/L (136-145)
[2020-11-04] MEDS ORDERED: Pantoprazole 40 MG VIAL ONE (11:53)
[2020-11-04] MEDS ORDERED: Ondansetron PF 4 MG/2 ML Vial IVP PRN (12:37)
[2020-11-04] MEDS ORDERED: Octreotide Acetate 1,250 MCG in Sodium Chloride 0.9% 250 ML 250 ML IVPB SCH (13:00)
[2020-11-04 13:25] LABS: SARS-CoV-2 NAA Rapid Test Not Detected (NotDetected)
[2020-11-04] MEDS ORDERED: Fentanyl 100 MCG/2 ML VIAL ONE (14:08)
[2020-11-04] MEDS ORDERED: Lidocaine 1% PF 5 ML VIAL ONE (14:13)
[2020-11-04] MEDS ORDERED: ePHEDrine Sulfate 50 MG/10 ML VIAL ONE (14:13)
[2020-11-04] MEDS ORDERED: PROPOFOL 200 MG/20 ML VIAL ONE (14:13)
[2020-11-04] MEDS ORDERED: PHENYLEPHRINE-NS 100 MCG/ML 10 ML SYRINGE ONE (14:13)
[2020-11-04] MEDS ORDERED: Rocuronium Bromide 10 MG/ML (10ML VIAL) ONE (14:13)
[2020-11-04] MEDS ORDERED: Sodium Chloride 0.9% 10 ML ONE (14:22)
[2020-11-04] MEDS ORDERED: Phenylephrine 10 MG/ML VIAL ONE (14:32)
[2020-11-04] MEDS ORDERED: SUGAMMADEX SODIUM 500 MG/5 ML VIAL ONE (15:10)
[2020-11-04 17:01] VITALS: BMI 35.2
[2020-11-04] MEDS: Pantoprazole 80 MG, Admixture Fee 1 EACH in Sodium Chloride 0.9% 100 ML IVPB SCH ×2 (18:02→20:33)
[2020-11-04 18:07] LABS: #Lymphocytes 1.3 thou/uL (1.20-3.40); #Monocytes 0.8 thou/uL (0.11-0.59); #Neutrophils 7.4 thou/uL (1.40-6.50); %Basophils 0.3 % (0.0-1.0); %Eosinophils 0.2 % (0.0-10.0); %Lymphocytes 13.4 % (21.0-51.0); %Monocytes 8.6 % (0.0-10.0); %Neutrophils 77.5 % (42.0-75.0); Hemoglobin 8.5 g/dL (12.0-16.0); Mean Corpuscular HGB CONC 34.1 g/dL (32.0-36.0); Mean Corpuscular Hemoglobin 31.7 pg (27.0-31.0); Mean Corpuscular Volume 92.8 fL (78.0-98.0); Platelet Count 103 thou/uL (130-400); RBC Distribution Width 14.1 % (11.5-14.5); Red Blood Cell (RBC) Count 2.68 mill/uL (4.20-5.40); White Blood Cell (WBC) Count 9.5 thou/uL (4.8-10.8)
[2020-11-04] MEDS ORDERED: Morphine 2 MG/ML VIAL SLOW IVP SCH (22:30)
[2020-11-04] MEDS: Sodium Chloride 0.9% 1,000 ML IV SCH (22:35)
[2020-11-05 01:21] LABS: #Eosinphils 0.1 thou/uL (0.0-0.7); #Lymphocytes 2.3 thou/uL (1.20-3.40); #Neutrophils 6.1 thou/uL (1.40-6.50); %Basophils 0.3 % (0.0-1.0); %Eosinophils 1.1 % (0.0-10.0); %Monocytes 10.4 % (0.0-10.0); %Neutrophils 64.2 % (42.0-75.0); Hemoglobin 8.9 g/dL (12.0-16.0); Mean Corpuscular Hemoglobin 31.4 pg (27.0-31.0); Mean Corpuscular Volume 92.4 fL (78.0-98.0); Mean Platelet Volume 8.7 fL (7.4-10.4); Platelet Count 100 thou/uL (130-400); RBC Distribution Width 14.2 % (11.5-14.5); Red Blood Cell (RBC) Count 2.84 mill/uL (4.20-5.40); White Blood Cell (WBC) Count 9.5 thou/uL (4.8-10.8)
[2020-11-05 04:38] LABS: ALT (SGPT) 16 U/L (8-55); AST (SGOT) 17 U/L (5-34); Alkaline Phosphatase 96 U/L (40-110); Anion Gap 14 mmol/L (10-20); BUN (Urea Nitrogen) 46 mg/dL (9.8-20.1); Bilirubin, Total 1.2 mg/dL (0.2-1.2); Calc. Creatinine Clearance 39 mL/min (70-130); Calcium 7.4 mg/dL (7.8-10.44); Carbon Dioxide 22 mmol/L (23-31); Chloride 107 mmol/L (98-107); Globulin 3.1 g/dL (2.4-3.5); Glucose 108 mg/dL (83-110); Potassium 4.9 mmol/L (3.5-5.1); Protein, Total 5.1 g/dL (5.8-8.1); Sodium 138 mmol/L (136-145)
[2020-11-05] MEDS: Pantoprazole 80 MG, Admixture Fee 1 EACH in Sodium Chloride 0.9% 100 ML IVPB SCH ×2 (07:03→20:59)
[2020-11-05] MEDS ORDERED: Albumin 25% 25 GM/100 ML BOT IVPB STA (07:42)
[2020-11-05] MEDS: Sodium Chloride 0.9% 1,000 ML IV SCH (12:45)
[2020-11-05 13:58] LABS: Hemoglobin 8.3 g/dL (12.0-16.0); Platelet Count 83 thou/uL (130-400)
[2020-11-05] MEDS: Albumin 25% 25 GM/100 ML BOT IVPB SCH (21:04)
[2020-11-05] MEDS: Acetaminophen 325 MG TAB PO PRN (23:15)
[2020-11-05] MEDS: Melatonin 3 MG TAB PO PRN (23:15)
[2020-11-06 04:01] LABS: #Eosinphils 0.2 thou/uL (0.0-0.7); #Lymphocytes 1.2 thou/uL (1.20-3.40); #Monocytes 0.5 thou/uL (0.11-0.59); #Neutrophils 4.3 thou/uL (1.40-6.50); %Basophils 0.2 % (0.0-1.0); %Eosinophils 3.7 % (0.0-10.0); %Lymphocytes 18.7 % (21.0-51.0); %Monocytes 7.9 % (0.0-10.0); %Neutrophils 69.5 % (42.0-75.0); Hemoglobin 7.9 g/dL (12.0-16.0); Mean Corpuscular Hemoglobin 32.6 pg (27.0-31.0); Mean Corpuscular Volume 93.3 fL (78.0-98.0); Mean Platelet Volume 8.4 fL (7.4-10.4); Platelet Count 74 thou/uL (130-400); RBC Distribution Width 14.3 % (11.5-14.5); Red Blood Cell (RBC) Count 2.41 mill/uL (4.20-5.40); White Blood Cell (WBC) Count 6.2 thou/uL (4.8-10.8)
[2020-11-06 04:05] LABS: ALT (SGPT) 15 U/L (8-55); AST (SGOT) 18 U/L (5-34); Albumin 2.8 g/dL (3.4-4.8); Alkaline Phosphatase 97 U/L (40-110); Anion Gap 15 mmol/L (10-20); BUN (Urea Nitrogen) 48 mg/dL (9.8-20.1); Bilirubin, Total 1.1 mg/dL (0.2-1.2); Calc. Creatinine Clearance 38 mL/min (70-130); Calcium 7.9 mg/dL (7.8-10.44); Carbon Dioxide 23 mmol/L (23-31); Chloride 108 mmol/L (98-107); Glucose 117 mg/dL (83-110); Protein, Total 5.8 g/dL (5.8-8.1); Sodium 141 mmol/L (136-145)
[2020-11-06] MEDS: Albumin 25% 25 GM/100 ML BOT IVPB SCH ×4 (06:21→20:21)
[2020-11-06 07:31] LABS: Bilirubin Negative (Negative); Blood, Urine Negative (Negative); Glucose, Urine (Dipstick) Negative (Negative); Ketone, Urine Negative (Negative); Leukocyte Small (Negative); Nitrite Negative (Negative); Protein, Urine (Dipstick) Negative (Neg-Trace); Urobilinogen 0.2 mg/dL (Less than 2)
[2020-11-06 07:32] LABS: Clarity Clear (Clear); Urine Culture Reflex No No
[2020-11-06 07:45] LABS: Bacteria/HPF Rare-Few HPF (None Seen); RBC/HPF 0-3 HPF (0-3)
[2020-11-06 07:52] LABS: Protein, Urine Random Quant Less than 10 mg/dL (1-14); Sodium, Urine 42 mmol/L (Not Available); Urea Nitrogen, Random Urine 360 mg/dl
[2020-11-06] MEDS: Midodrine HCl 5 MG TAB PO SCH ×3 (08:42→20:22)
[2020-11-06] MEDS ORDERED: Octreotide Acetate 100 MCG/ML VIAL SC SCH (09:00)
[2020-11-06] MEDS ORDERED: Octreotide Acetate 1,250 MCG in Sodium Chloride 0.9% 250 ML 250 ML IVPB SCH (11:45)
[2020-11-06] MEDS: Acetaminophen 325 MG TAB PO PRN (20:18)
[2020-11-06] MEDS: Pantoprazole 40 MG VIAL IVP SCH (20:21)
[2020-11-06] MEDS: Melatonin 3 MG TAB PO PRN (23:59)
[2020-11-07] MEDS: Albumin 25% 25 GM/100 ML BOT IVPB SCH ×2 (02:03→08:28)
[2020-11-07 03:36] LABS: #Eosinphils 0.3 thou/uL (0.0-0.7); #Lymphocytes 1.3 thou/uL (1.20-3.40); #Monocytes 0.7 thou/uL (0.11-0.59); #Neutrophils 5.1 thou/uL (1.40-6.50); %Basophils 0.1 % (0.0-1.0); %Lymphocytes 17.6 % (21.0-51.0); %Monocytes 8.9 % (0.0-10.0); %Neutrophils 69.4 % (42.0-75.0); Hemoglobin 8.1 g/dL (12.0-16.0); Mean Corpuscular HGB CONC 33.5 g/dL (32.0-36.0); Mean Corpuscular Hemoglobin 31.5 pg (27.0-31.0); Mean Corpuscular Volume 94.1 fL (78.0-98.0); Mean Platelet Volume 8.3 fL (7.4-10.4); Platelet Count 78 thou/uL (130-400); RBC Distribution Width 14.4 % (11.5-14.5); Red Blood Cell (RBC) Count 2.57 mill/uL (4.20-5.40); White Blood Cell (WBC) Count 7.3 thou/uL (4.8-10.8)
[2020-11-07] MEDS: Albuterol Sulfate 2.5 mg/3 ml Neb NEB PRN ×2 (03:45→11:26)
[2020-11-07 03:54] LABS: ALT (SGPT) 15 U/L (8-55); AST (SGOT) 20 U/L (5-34); Albumin 3.8 g/dL (3.4-4.8); Alkaline Phosphatase 100 U/L (40-110); Anion Gap 13 mmol/L (10-20); BUN (Urea Nitrogen) 44 mg/dL (9.8-20.1); Bilirubin, Total 1.3 mg/dL (0.2-1.2); Calc. Creatinine Clearance 36 mL/min (70-130); Calcium 8.6 mg/dL (7.8-10.44); Carbon Dioxide 22 mmol/L (23-31); Chloride 109 mmol/L (98-107); Glucose 179 mg/dL (83-110); Iron 36 ug/dL (50-170); Iron Binding Capacity, Total 196 mcg/dL (265-497); Potassium 4.7 mmol/L (3.5-5.1); Protein, Total 6.8 g/dL (5.8-8.1); Sodium 139 mmol/L (136-145)
[2020-11-07 03:58] LABS: Troponin I 0.035 ng/mL (< 0.028)
[2020-11-07 04:01] LABS: INR-International Normal Ratio 1.4
[2020-11-07] MEDS ORDERED: Furosemide 20 MG/2 ML VIAL SLOW IVP SCH ×2 (06:00→15:00)
[2020-11-07] MEDS ORDERED: Furosemide 40 MG/4 ML VIAL SLOW IVP SCH (07:58)
[2020-11-07] MEDS ORDERED: Spironolactone 25 MG TAB PO SCH (08:00)
[2020-11-07] MEDS: Pantoprazole 40 MG VIAL IVP SCH (08:27)
[2020-11-07] MEDS: Midodrine HCl 5 MG TAB PO SCH ×2 (08:29→16:20)
[2020-11-07] MEDS: Sodium Bicarbonate Tab 325 MG TAB PO SCH ×2 (08:29→16:20)
[2020-11-07 19:31] VITALS: BP 147/77; TEMP 97.8
== END 2020-11-07 20:05 | disposition hospice, inpatient (51) | DRG 368 ==
LOC: ERS 10:54 → SURG A 12:17 → IMCU/EMU 16:30 → T4-B 11-06 22:39
PROVIDERS: ADMIT Internal Medicine; ATTEND Internal Medicine
PROC: 0D9670Z Drainage of Stomach with Drainage Device, Via Natural or Artificial Opening (ICD-10-PCS; principal; 2020-11-04)
PROC: 30233N1 Transfusion of Nonautologous Red Blood Cells into Peripheral Vein, Percutaneous Approach (ICD-10-PCS; 2020-11-04)
PROC: 0DJ08ZZ Inspection of Upper Intestinal Tract, Via Natural or Artificial Opening Endoscopic (ICD-10-PCS; 2020-11-04)
DX: K22.6 Gastro-esophageal laceration-hemorrhage syndrome (principal); J96.01 Acute respiratory failure with hypoxia; K76.7 Hepatorenal syndrome; E87.2 Acidosis; K76.6 Portal hypertension; D61.818 Other pancytopenia; N17.9 Acute kidney failure, unspecified; R18.8 Other ascites; I82.442 Acute embolism and thrombosis of left tibial vein; Z66 Do not resuscitate; Z20.822 Contact with and (suspected) exposure to COVID-19; I85.00 Esophageal varices without bleeding; E11.22 Type 2 diabetes mellitus with diabetic chronic kidney disease; I12.9 Hypertensive chronic kidney disease with stage 1 through stage 4 chronic kidney disease, or unspecified chronic kidney disease; I25.10 Atherosclerotic heart disease of native coronary artery without angina pectoris; K74.60 Unspecified cirrhosis of liver; K59.09 Other constipation; F41.9 Anxiety disorder, unspecified; E66.9 Obesity, unspecified; K31.89 Other diseases of stomach and duodenum; I95.9 Hypotension, unspecified; E87.70 Fluid overload, unspecified; E88.09 Other disorders of plasma-protein metabolism, not elsewhere classified; E87.5 Hyperkalemia; K75.81 Nonalcoholic steatohepatitis (NASH); N18.30 Chronic kidney disease, stage 3 unspecified; K72.90 Hepatic failure, unspecified without coma; R07.9 Chest pain, unspecified; Z95.1 Presence of aortocoronary bypass graft; Z88.5 Allergy status to narcotic agent; Z88.0 Allergy status to penicillin; Z88.2 Allergy status to sulfonamides; Z88.8 Allergy status to other drugs, medicaments and biological substances; Z79.82 Long term (current) use of aspirin; Z79.4 Long term (current) use of insulin; Z79.899 Other long term (current) drug therapy; Z95.5 Presence of coronary angioplasty implant and graft; Z68.36 Body mass index [BMI] 36.0-36.9, adult; I25.2 Old myocardial infarction
CPT/HCPCS: 36415; 36416; 36430; 49083; 71045; 80053; 81001; 82274; 82570; 82728; 83540; 83550; 83880; 84156; 84300; 84484; 84540; 85025; 85610; 85730; 86850; 86900; 86901; 93005; 93010; 93970; 94640; 96365; 96366; C9113; J0744; J1940; J2270; J2354; J2370; J2704; J3010; J3490; J7050; J7611; P9016; P9047; U0002; U0005